=== PATIENT | male | born 1955 | race Caucasian/White ===

== ENCOUNTER 2021-12-22 13:13 | Emergency (ER) | payer OTHER, MEDICAID ==
[~2021-12-22] VITALS: Ht 172.7 cm; Wt 81.6 kg
--- NOTE | 2021-12-22 13:13 | NUR ---
Pt MARGI VASQUEZ, via gurney to bed 04.
[2021-12-22 13:16] VITALS: BP 138/72
--- NOTE | 2021-12-22 13:27 | NUR ---
BIBA FROM WORK C/O BACK PAIN ACCOMPANIED BY B/L ABD PAIN AND DIZZINESS AND NAUSEA. STATES HAVING GROUND LEVEL FALL 2 DAYS AGO. AAOX4, AMBULATORY, VITALS STABLE. IV ESTABLISHED ON R AC 20G. HX: HYPOTHYROIDISM
[2021-12-22] MEDS ORDERED: MORPHINE SULFATE 4 MG/ML SYR IVP ONE (14:35)
[2021-12-22] MEDS ORDERED: NACL 0.9% 1,000 ML IV ONE (14:35)
[2021-12-22 15:34] LABS: BASOPHILS # (AUTO) 0.1 K/uL (0.00-0.22); BASOPHILS % (AUTO) 0.6 % (0.0-2.0); EOSINOPHILS % (AUTO) 0.5 % (0.0-4.0); HEMATOCRIT 38.9 % (36-52); HEMOGLOBIN 12.7 g/dL (12.0-18.0); LYMPHOCYTES # (AUTO) 1.1 K/uL (2.0-11.5); LYMPHOCYTES % (AUTO) 13.1 % (20.5-51.1); MEAN CORPUSCULAR HEMOGLOBIN 27 pg (27-31); MEAN CORPUSCULAR HGB CONC 33 g/dL (33-37); MEAN CORPUSCULAR VOLUME 82.5 fL (80-94); MONOCYTES # (AUTO) 0.8 K/uL (0.8-1.0); MONOCYTES % (AUTO) 9.5 % (1.7-9.3); NEUTROPHILS # (AUTO) 6.6 K/uL (1.8-7.7); NEUTROPHILS % (AUTO) 76.3 % (42.2-75.2); PLATELET COUNT (AUTO) 261 K/uL (140-450); RED BLOOD CELL COUNT(AUTO) 4.71 MIL/uL (4.20-6.10); RED CELL DISTRIBUTION WIDTH 16.1 % (11.6-13.7); WHITE BLOOD COUNT (AUTO) 8.7 K/uL (4.8-10.8)
--- NOTE | 2021-12-22 15:47 | NUR ---
PT MOVED TO ER BED 2
[2021-12-22 15:49] LABS: ALBUMIN 3.3 g/dL (3.4-5.0); ANION GAP 14.7 (8-16); ASPARTATE AMINOTRANSFERASE 19 U/L (15-37); CARBON DIOXIDE 19.1 mmol/L (21-32); CHLORIDE 109 mmol/L (98-107); CREATININE 1.1 mg/dL (0.6-1.3); GFR ARICAN-AMERICAN 86 mL/min (>90); GLUCOSE 86 mg/dL (74-106); POTASSIUM 3.8 mmol/L (3.5-5.1); SODIUM SERUM 139 mmol/L (136-145); TOTAL BILIRUBIN 0.6 mg/dL (0.0-1.0); UREA NITROGEN, BLOOD 18 mg/dL (7-18)
[2021-12-22 16:06] LABS: FREE T4 (FREE THYROXINE) 1.43 ng/dL (0.76-1.46); THYROID STIMULATING HORMONE 0.69 uIU/mL (0.34-3.74)
[2021-12-22 17:52] VITALS: BP 134/65
[2021-12-22] MEDS ORDERED: NAPR-54 PO (18:18)
[2021-12-22] MEDS ORDERED: [UNRECOGNIZED DRUG - CODE] PO (18:18)
[2021-12-22] MEDS ORDERED: LIDO1KIT TP (18:18)
== END 2021-12-22 18:26 | disposition home or self-care (01) ==
LOC: MED 13:13
DX: S29.9XXA Unspecified injury of thorax, initial encounter (principal); Z20.822 Contact with and (suspected) exposure to COVID-19; R55 Syncope and collapse; E86.0 Dehydration; I10 Essential (primary) hypertension; R10.9 Unspecified abdominal pain; K76.89 Other specified diseases of liver; K57.10 Diverticulosis of small intestine without perforation or abscess without bleeding; N28.1 Cyst of kidney, acquired; N40.0 Benign prostatic hyperplasia without lower urinary tract symptoms; E03.9 Hypothyroidism, unspecified; F17.290 Nicotine dependence, other tobacco product, uncomplicated; Z79.899 Other long term (current) drug therapy; W11.XXXA Fall on and from ladder, initial encounter; Y93.89 Activity, other specified; Y92.89 Other specified places as the place of occurrence of the external cause; Y99.8 Other external cause status
CPT/HCPCS: 36415; 71250; 74176; 80053; 81002; 82553; 84439; 84443; 84484; 85025; 85379; 87426; 93005; 96361; 96374; 99285; J2270; J7030